=== PATIENT | female | born 1990 | race Hispanic/Latino ===

== ENCOUNTER 2022-03-08 18:45 | Emergency (ER) | payer SELFPAY ==
[2022-03-08 19:22] LABS: Pregnancy Test - Urine (BHCG) Negative (Negative); Pregu Control Background? CLEAR/WHITE (CLR/WHITE); Pregu Control Bar Appear? YES (CONTROL BAR); Specific Gravity 1.028 (1.002-1.036)
[2022-03-08] MEDS ORDERED: Ibuprofen 200 MG TAB ONE (19:48)
[2022-03-08 20:05] LABS: #Eosinphils 0.1 thou/uL (0.0-0.7); #Lymphocytes 2.5 thou/uL (1.20-3.40); #Monocytes 0.5 thou/uL (0.11-0.59); %Basophils 0.6 % (0.0-1.0); %Eosinophils 1.6 % (0.0-10.0); %Lymphocytes 30.8 % (21.0-51.0); %Monocytes 5.8 % (0.0-10.0); %Neutrophils 61.3 % (42.0-75.0); Hemoglobin 12.7 g/dL (12.0-16.0); Mean Corpuscular HGB CONC 31.7 g/dL (32.0-36.0); Mean Corpuscular Volume 88.3 fl (78.0-98.0); Mean Platelet Volume 8.3 fL (7.4-10.4); Platelet Count 283 10x3/uL (130-400); RBC Distribution Width 14.4 % (11.5-14.5); Red Blood Cell (RBC) Count 4.54 mill/uL (4.20-5.40); White Blood Cell (WBC) Count 8.1 10x3/uL (4.8-10.8)
[2022-03-08 20:26] LABS: ALT (SGPT) 35 U/L (8-55); AST (SGOT) 20 U/L (5-34); Albumin 3.9 g/dL (3.5-5.0); Alkaline Phosphatase 82 U/L (40-110); Anion Gap 12 mmol/L (10-20); BUN (Urea Nitrogen) 11 mg/dL (7.0-18.7); Bilirubin, Total 0.2 mg/dL (0.2-1.2); Calc. Creatinine Clearance 0 mL/min (70-130); Calcium 9.3 mg/dL (7.8-10.44); Carbon Dioxide 26 mmol/L (22-29); Chloride 104 mmol/L (98-107); Estimated GFR 119; Globulin 3.3 g/dL (2.4-3.5); Glucose 100 mg/dL (70-105); Potassium 3.7 mmol/L (3.5-5.1); Protein, Total 7.2 g/dL (6.0-8.3); Sodium 138 mmol/L (136-145)
== END 2022-03-08 20:53 | disposition home or self-care (01) ==
LOC: NAV ERS 18:45
DX: N93.8 Other specified abnormal uterine and vaginal bleeding (principal); I10 Essential (primary) hypertension
CPT/HCPCS: 80053; 81025; 84443; 85025; 99284

== ENCOUNTER 2024-02-22 17:43 | Emergency (ER) | payer BC, SELFPAY ==
[2024-02-22] MEDS ORDERED: Lidocaine 1% (PF) 30 ML VIAL ONE (20:25)
[2024-02-22] MEDS ORDERED: Sulfameth/Trimethoprim DS 800-160mg TAB ONE (20:53)
[2024-02-22] MEDS ORDERED: HYDROcodone/Acetaminophen 5/325 mg Tablet ONE (20:54)
== END 2024-02-22 21:01 | disposition home or self-care (01) ==
LOC: NAV ERS 17:43
DX: L03.314 Cellulitis of groin (principal)
CPT/HCPCS: 10060

== ENCOUNTER 2024-02-25 22:47 | Emergency (ER) | payer BC | END 2024-02-25 23:29 | disposition home or self-care (01) | LOC: NAV ERS 22:47 | DX: N76.4 Abscess of vulva (principal) | CPT/HCPCS: 99282 ==

== ENCOUNTER 2024-12-05 19:43 | Emergency (ER) | payer BC ==
[2024-12-05 20:18] LABS: #Basophils 0.1 thou/uL (0.0-0.2); #Eosinophils 0.1 thou/uL (0.0-0.7); #Lymphocytes 3.0 thou/uL (1.20-3.40); #Monocytes 0.6 thou/uL (0.11-0.59); #Neutrophils 6.2 thou/uL (1.40-6.50); %Basophils 0.7 % (0.0-1.0); %Eosinophils 1.3 % (0.0-10.0); %Lymphocytes 29.7 % (21.0-51.0); %Monocytes 5.7 % (0.0-10.0); %Neutrophils 62.6 % (42.0-75.0); Hematocrit 25.7 % (36.0-47.0); Hemoglobin 9.1 g/dL (12.0-16.0); Mean Corpuscular Hemoglobin 29.1 pg (27.0-31.0); Mean Corpuscular Volume 82.3 fl (78.0-98.0); Platelet Count 301 10x3/uL (130-400); Red Blood Cell (RBC) Count 3.13 mill/uL (4.20-5.40); White Blood Cell (WBC) Count 10.0 10x3/uL (4.8-10.8)
[2024-12-05 20:34] LABS: ALT (SGPT) 28 U/L (Less than 34); AST (SGOT) 30 U/L (11-34); Albumin 3.7 g/dL (3.1-4.5); Alkaline Phosphatase 65 U/L (40-110); Anion Gap 17 mmol/L (10-20); BUN (Urea Nitrogen) 12 mg/dL (7.0-18.7); Bilirubin, Total 0.2 mg/dL (0.3-1.2); Calc. Creatinine Clearance 0 mL/min (70-130); Calcium 9.0 mg/dL (7.8-10.44); Carbon Dioxide 22 mmol/L (22-29); Chloride 103 mmol/L (98-107); Globulin 3.0 g/dL (2.4-3.5); Glucose 111 mg/dL (70-105); Potassium 3.6 mmol/L (3.5-5.1); Sodium 138 mmol/L (136-145)
[2024-12-05 20:35] LABS: INR-International Normal Ratio 1.0; Prothrombin Time 13.3 sec (12.0-14.7)
[2024-12-05 20:36] LABS: BHCG - Serum Negative (NEGATIVE); PTT 29.8 sec (22.9-36.1); Pregs Control Bar Appear? YES (CONTROL BAR)
[2024-12-05] MEDS ORDERED: Tranexamic Acid 1,000 MG/10 ML VIAL ONE ×2 (20:45→20:50)
== END 2024-12-05 22:15 | disposition home or self-care (01) ==
LOC: NAV ERS 19:43
DX: N93.8 Other specified abnormal uterine and vaginal bleeding (principal)
CPT/HCPCS: 80053; 84703; 85025; 85610; 85730; 96365; J7030